=== PATIENT | male | born 1980 | race American Indian/Alaskan Native ===

== ENCOUNTER 2016-12-17 11:35 | Emergency (ER) | payer SELFPAY ==
[2016-12-17] MEDS ORDERED: CATAPRES ONE (11:53)
[2016-12-17 11:54] VITALS: BP 162/126
[2016-12-17] MEDS ORDERED: CATAPRES PO ONE (12:01)
== END 2016-12-17 12:10 | disposition left against medical advice (07) ==
LOC: ED 11:35
DX: R20.0 Anesthesia of skin (principal); I10 Essential (primary) hypertension; F17.200 Nicotine dependence, unspecified, uncomplicated; F12.90 Cannabis use, unspecified, uncomplicated; Z53.21 Procedure and treatment not carried out due to patient leaving prior to being seen by health care provider

== ENCOUNTER 2017-03-20 05:25 | Emergency (ER) | payer SELFPAY ==
[2017-03-20 05:39] VITALS: BP 162/101
[2017-03-20] MEDS ORDERED: TYLENOL ONE (05:57)
[2017-03-20] MEDS ORDERED: TYLENOL PO ONE (06:06)
[2017-03-20 07:48] LABS: Bilirubin,Urine NEG (Negative); Blood,Urine LG (Negative); Ketones,Urine NEG (Negative); Leukocyte Esterase,Urine NEG (Negative); Mucus,Urine 3+ /HPF; Nitrite,Urine NEG (Negative); Sperm,Urine 1+ /HPF (NP); Urobilinogen,Urine < 2.0 mg/dL (<2.0)
[2017-03-20 07:49] LABS: RBC,Urine > 182.0 /HPF (0.0-6.0)
== END 2017-03-20 07:00 | disposition left against medical advice (07) ==
LOC: ED 05:25
DX: M54.89 Other dorsalgia (principal); Z53.21 Procedure and treatment not carried out due to patient leaving prior to being seen by health care provider
CPT/HCPCS: 81001